=== PATIENT | female | born 1980 | race Caucasian/White ===

== ENCOUNTER 2018-10-10 03:54 | Emergency (ER) | payer SELFPAY ==
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
[2018-10-10 04:09] VITALS: BP 156/97
== END 2018-10-10 04:13 | disposition home or self-care (01) ==
DX: T14.90XA Injury, unspecified, initial encounter (principal); V44.5XXA Car driver injured in collision with heavy transport vehicle or bus in traffic accident, initial encounter; Y92.410 Unspecified street and highway as the place of occurrence of the external cause